=== PATIENT | female | born 1960 | race Caucasian/White ===

== ENCOUNTER 2020-03-02 15:23 | Outpatient (CLI) | payer OTHER, SELFPAY ==
--- NOTE | ~2020-03-02 | MR_ITS ---
EXAMINATION: MR knee LT wo con DATE: 03/02/2020 16:22 INDICATION: Left knee injury and pain. TECHNIQUE: Magnetic resonance imaging (MRI) of the left knee was performed without intravenous contra st. Sequences included axial PD-weighted FS FSE, coronal PD-weighted FSE and PD-weighted FS FSE, sagi ttal PD-weighted FSE, and sagittal T2-weighted FS FSE. COMPARISON: Left knee radiographs 02/23/2020 FINDINGS: Medial compartment: Medial meniscus is normal. There is cartilage surface irregularity of femoral condyle involving the c entral articular surface. Tibial cartilage is normal. Lateral compartment: Lateral meniscus is normal. There is cartilage surface irregularity of femoral condyle. There is deep cartilage fissuring of tibial condyle involving the central articular surface. Patellofemoral compartment: There is full-thickness cartilage loss of patellar medial and lateral facets and median ridge with mi ld subchondral edema-like signal intensity. There is full-thickness cartilage loss of lateral trochle a with mild subchondral edema-like signal intensity. Marginal osteophytes are noted. Ligaments and tendons: Anterior and posterior cruciate ligaments are normal. There are changes of prior sprains of medial co llateral ligament and fibular collateral ligament characterized by increased signal intensity proxima lly. There is mild patellar tendinopathy. Fluid: There is a small knee joint effusion. There is trace fluid in a [place]'s cyst. There is mild prepatell ar and superficial infrapatellar bursitis. There is a 14 mm multiloculated ganglion cyst posterior to femoral metaphysis medially. IMPRESSION: 1. Severe chondrosis of patellofemoral compartment, moderate chondrosis of lateral compartment, and m ild chondrosis of medial compartment. 2. Small knee joint effusion. Reviewed, dictated and finalized at location A. IMPRESSION: 1. Severe chondrosis of patellofemoral compartment, moderate chondrosis of late ral compartment, and mild chondrosis of medial compartment. 2. Small knee joint effusion.
== END 2020-03-02 15:24 | disposition home or self-care (01) ==
PROVIDERS: Visit Provider Orthopaedic Surgery
DX: S89.90XA Unspecified injury of unspecified lower leg, initial encounter (principal); M22.2X1 Patellofemoral disorders, right knee; M25.462 Effusion, left knee
CPT/HCPCS: 73721